=== PATIENT | female | born 1955 | race Caucasian/White ===

== ENCOUNTER 2022-02-08 02:12 | Emergency (ER) | payer MEDICARE, BC, SELFPAY ==
[2022-02-08 02:15] VITALS: BP 130/75; PULSE 89; RESP 18; TEMP 36.5; O2SAT 93; BMI 21.1
--- NOTE | 2022-02-08 02:28 | W.ED.SYNCOPE ---
HPI - Syncope General: Chief Complaint: Syncope Stated Complaint: SYNCOPAL EPISODE Time Seen by Provider: 02/08/22 02:12 Source: patient and EMS Mode of arrival: EMS Limitations: no limitations History of Present Illness: 66-year-old female who is here on vacation from [place] without an eminence on trails. States she has been out all day in the heat and has been drinking alcohol with her friends. States she is prone to fainting and had a syncopal episode tonight. They called EMS EMS states while with them she had another syncopal event that was vagal in nature where she had bradycardia and hypotension. Patient is received 1.5 L of fluids with EMS she states she feels much improved she denies any chest pain or headache before or after the event she denies hitting her head denies any other issues at this time. Associated symptoms: Deny abdominal pain, fever(s), headache(s) or nausea Review of Systems Const: Denies: fever(s), chills, body aches or change in appetite Eyes: Denies: blurry vision or eye discomfort ENMT: Denies: throat pain or dental pain Card: Reports: syncope Resp: Denies: dyspnea GI: Denies: abdominal pain, nausea, vomiting or diarrhea : Denies: dysuria Musc: Denies: neck pain or back pain Skin/Breast: Denies: rash Neuro: Denies: headache(s) Psych: Denies: depression Bruce/Lymph: Denies: easy bruising All/Imm: Denies: urticaria PFS ED PFSH: Medical History (Updated 02/08/22 @ 03:19 by Mignon Mata MD) No pertinent past medical history Physical Exam Const: COMMON NORMALS: no acute distress, patient oriented x3 and healthy appearing HENMT: COMMON NORMALS: normocephalic and atraumatic HEAD & SCALP: normocephalic and atraumatic Eye: COMMON NORMALS: Equal, round and reactive pupils present and EOMs intact bilaterally PUPIL: Yes Equal, round and reactive pupils present Neck/C-Spine: COMMON NORMALS: full ROM and supple Chest: COMMONS NORMALS: normal inspection of the chest and normal palpation of entire chest wall Resp: COMMON NORMALS: normal respiratory effort, No retractions, No use of accessory muscles and clear to auscultation bilaterally AUSCULTATION: clear to auscultation bilaterally Cardio: COMMON NORMALS: regular rate, regular rhythm and No murmurs present (Cardio) RATE: regular rate RHYTHM: regular rhythm GI: COMMON NORMALS: Normal to inspection, nondistended, normoactive bowel sounds present, Soft to palpation, non-tender and no masses PALPATION: Yes Soft to palpation Extremity: COMMON NORMALS: normal to inspection and full ROM Neuro: COMMON NORMALS: patient oriented x3, moves all extremities and no focal motor deficits Psych: COMMON NORMALS: mental status grossly normal, Normal thought process present and cooperative THOUGHT PROCESS: Normal thought process present Skin: COMMON NORMALS: no rashes or lesions noted and no wounds GENERAL SKIN EXAM: no rashes or lesions noted Course Vital Signs: Vital signs: Vital Signs Temperature 97.7 F 02/08/22 02:15 Pulse Rate 82 02/08/22 02:33 Respiratory Rate 16 02/08/22 02:33 Blood Pressure 121/78 02/08/22 02:33 Pulse Oximetry 96 02/08/22 02:33 Oxygen Delivery Me thod 02/08/22 02:33 MDM - Syncope Medical Decision Making Patient presents here with a syncopal event likely from alcohol use today along with heat exhaustion she feels much improved after IV fluids her blood works normal she is stable for discharge she is to follow-up PCP and return if worsening. Lab Data : 02/08/22 02:29 02/08/22 02:29 Laboratory Results WBC 9.9 10^3/uL (4.0-10.0) 02/08/22 02:29 RBC 3.96 10^6/uL (4.1-5.3) L 02/08/22 02:29 Hgb 12.5 g/dL (11.5-15.3) 02/08/22 02:29 Hct 37.7 % (37.0-47.0) 02/08/22 02:29 MCV 95.2 fl (81-99) 02/08/22 02:29 MCH 31.6 pg (28.0-34.0) 02/08/22 02:29 MCHC 33.2 g/dL (30.0-36.0) 02/08/22 02:29 RDW 12.6 % (12.1-15.1) 02/08/22 02:29 Plt Count 195 10^3/cmm (130-400) 02/08/22 02: MPV 10.0 fL (7.4-10.4) 02/08/22 02: Neut % (Auto) 78.3 % 02/08/22 02: Lymph % (Auto) 13.0 % 02/08/22 02: [place] % (Auto) 6.5 % 02/08/22 02: Eos % (Auto) 1.4 % 02/08/22 02: Baso % (Auto) 0.3 % 02/08/22 02: Neut # (Auto) 7.75 10^3/uL (1.8-7.7) H 02/08/22 02: Lymph # (Auto) 1.3 10^3/uL (0.8-4.8) 02/08/22 02: [place] # (Auto) 0.6 10^3/uL (0.2-0.9) 02/08/22 02: Eos # (Auto) 0.1 10^3/uL (0.0-0.8) 02/08/22 02: Baso # (Auto) 0.0 10^3/uL (0.0-0.1) 02/08/22 02: Nucleated RBC % (auto) 0 % 02/08/22 02: Nucleated RBCs # 0.0 /100WBC 02/08/22 02: Sodium 133 mmol/L (136-145) L 02/08/22 02: Potassium 3.8 mmol/L (3.5-5.1) 02/08/22 02: Chloride 95 mmol/L (98-107) L 02/08/22 02: Carbon Dioxide 22 mmol/L (22-29) 02/08/22 02: Anion Gap 19.8 (5-19) H 02/08/22 02: BUN 9 mg/dL (8-23) 02/08/22 02: Creatinine 0.4 mg/dL (0.5-0.9) L 02/08/22 02: GFR Calculation 160.2 mL/min (90-130) H 02/08/22 02: Glucose 101 mg/dL (65-115) 02/08/22 02:29 Calculated Osmolality 275 mOsm/kg (285-295) L 02/08/22 02:29 Calcium 7.7 mg/dL (8.5-10.5) L 02/08/22 02:29 Total Bilirubin 0.4 mg/dL (0.15-1.2) 02/08/22 02:29 AST 123 U/L (0-32) H 02/08/22 02:29 ALT 70 U/L (0-33) H 02/08/22 02:29 Alkaline Phosphatase 71 IU/L (35-105) 02/08/22 02:29 Total Protein 5.8 g/dL (6.6-8.7) L 02/08/22 02:29 Albumin 3.7 g/dL (3.5-5.2) 02/08/22 02:29 Globulin 2.1 g/dL (1.3-4.6) 02/08/22 02:29 Ethyl Alcohol 138 mg/dL (0-10) H 02/08/22 02:29 EKG Data EKG 1: I personally reviewed and interpreted this EKG as follows: EKG interpretation date: 02/08/22 EKG interpretation time: 02:30 Interpretation: nsr hr [address] or t wave abnormalities qrs 86 qtc 413 Discharge Plan Discharge Patient Disposition: Home Clinical Impression: Syncope Qualifiers: Syncope type: unspecified Qualified Code(s): R55 - Syncope and collapse Condition: Stable Discharge Orders: Discharge ED (Routine); Ordered 02/08/22 Ordered By: Mignon Mata Discharge Diet: Advance as tolerated Discharge Activity: Resume usual activity Patient Instructions: Syncope (ED) Coding Level of Care Code ED Exhibits Coordinator for Chg Fwd Exam Comprehensive
--- NOTE | 2022-02-08 02:30 | ECG_ITS ---
[facility] Test Date: 2022-02-08 Pat Name: Kristal De La Cruz Department: Room: Gender: Female Underwriting Assistant: : [id number] Requested By: Mignon Mata Order Number: [id number] Tom MD: Manny Mcmullen M.D. Measurements Intervals [place] Rate: 82 P: 66 CT: 136 QRS: 76 QRSD: 86 T: 69 QT: 375 QTc: 438 Interpretive Statements SINUS RHYTHM NONSPECIFIC T-WAVE ABNORMALITY No previous ECG available for comparison Electronically Signed On 02-08-2022 14:23:06 CDT by Manny Mcmullen M.D. [id number]
[2022-02-08 02:33] VITALS: BP 121/78; PULSE 82; RESP 16; O2SAT 96
[2022-02-08 02:36] LABS: Basophils % 0.3 %; Eosinophils # 0.1 10^3/uL (0.0-0.8); Eosinophils % 1.4 %; Hematocrit 37.7 % (37.0-47.0); Hemoglobin 12.5 g/dL (11.5-15.3); Lymphocytes # 1.3 10^3/uL (0.8-4.8); Mean Corpuscular HGB Conc 33.2 g/dL (30.0-36.0); Mean Corpuscular Hemoglobin 31.6 pg (28.0-34.0); Mean Corpuscular Volume 95.2 fl (81-99); Monocytes # 0.6 10^3/uL (0.2-0.9); Monocytes % 6.5 %; Neutrophils # 7.75 10^3/uL (1.8-7.7); Neutrophils % 78.3 %; Nucleated Red Blood Cells % 0 %; Platelet Count 195 10^3/cmm (130-400); Red Blood Count 3.96 10^6/uL (4.1-5.3); Red Cell Distribution Width 12.6 % (12.1-15.1); White Blood Count 9.9 10^3/uL (4.0-10.0)
[2022-02-08 03:07] LABS: Alanine Aminotransferase 70 U/L (0-33); Albumin Level 3.7 g/dL (3.5-5.2); Alcohol Level 138 mg/dL (0-10); Alkaline Phosphatase 71 IU/L (35-105); Anion Gap 19.8 (5-19); Aspartate Amino Transferase 123 U/L (0-32); Blood Urea Nitrogen 9 mg/dL (8-23); Calcium 7.7 mg/dL (8.5-10.5); Carbon Dioxide 22 mmol/L (22-29); Chloride 95 mmol/L (98-107); Globulin 2.1 g/dL (1.3-4.6); Glomerular Filtration Rate 160.2 mL/min (90-130); Glucose 101 mg/dL (65-115); Osmolality Calculated 275 mOsm/kg (285-295); Potassium 3.8 mmol/L (3.5-5.1); Sodium 133 mmol/L (136-145); Total Bilirubin 0.4 mg/dL (0.15-1.2); Total Protein 5.8 g/dL (6.6-8.7)
[2022-02-08 03:35] VITALS: BP 111/63; PULSE 79; RESP 16; O2SAT 97
== END 2022-02-08 03:37 | disposition home or self-care (01) ==
PROVIDERS: Emergency Provider Emergency Medicine
DX: R55 Syncope and collapse (principal)
CPT/HCPCS: 80053; 80307; 85025; 93005; 99284